=== PATIENT | female | born 1945 | race Caucasian/White ===

== ENCOUNTER 2020-05-28 09:48 | Inpatient (IN) ==
[2020-05-28] MEDS ORDERED: 0.9 % Sodium Chloride 1,000 ML IVC ONE (10:16)
[2020-05-28 10:31] LABS: Hematocrit 33.3 % (35.3-44.9); Hemoglobin 11.1 g/dL (11.5-15.4); Mean Corpuscular HGB Conc 33.3 g/dL (31.6-35.5); Mean Corpuscular Hemoglobin 28.7 pg (28.0-33.3); Mean Platelet Volume 9.3 fL (9.4-12.4); Monocytes # 0.4 K/mcL (0.0-1.3); Platelet Count 507 K/mcL (140-400); Red Blood Count 3.87 M/mcL (3.82-4.97); Red Cell Distribution Width 12.4 % (11.5-14.5); White Blood Count 8.4 K/mcL (4.3-11.1)
[2020-05-28 11:03] LABS: Albumin 3.4 g/dL (3.5-5.7); Albumin/Globulin Ratio 0.9 (1.1-2.2); Bilirubin,Total 0.7 mg/dL (0.3-1.0); Calcium 8.7 mg/dL (8.6-10.3); Globulin 3.6 g/dL (2.4-3.5); Magnesium 2.3 mg/dL (1.6-2.6); Potassium 3.4 mEq/L (3.5-5.1); Troponin I 0.05 ng/mL (< 0.04)
[2020-05-28 11:30] LABS: Lymphocytes # 0.5 K/mcL (0.6-4.6); Neutrophils # 6.8 K/mcL (1.6-8.9)
[2020-05-28] MEDS ORDERED: 0.9 % Sodium Chloride 1,000 ML IVC SCH (11:30)
[2020-05-28 11:37] LABS: Adenovirus Not Detected (Not Detect); Bordetella Pertussis Not Detected (Not Detect); Chlamydophila pneumoniae Not Detected (Not Detect); Coronavirus 229E Not Detected (Not Detect); Coronavirus HKU1 Not Detected (Not Detect); Coronavirus NL63 Not Detected (Not Detect); Coronavirus OC43 Not Detected (Not Detect); Human Metapneumovirus Not Detected (Not Detect); Human Rhinovirus/Enterovirus Not Detected (Not Detect); Influenza A Subtype 2009 H1 Not Detected (Not Detect); Influenza B Not Detected (Not Detect); Mycoplasma pneumoniae Not Detected (Not Detect); Parainfluenza Virus 1 Not Detected (Not Detect); Parainfluenza Virus 2 Not Detected (Not Detect); Parainfluenza Virus 3 Not Detected (Not Detect); Parainfluenza Virus 4 Not Detected (Not Detect); Respiratory Syncytial Virus Not Detected (Not Detect); SARS-CoV-2 Not Detected (Not Detect)
[2020-05-28] MEDS ORDERED: 0.9 % Sodium Chloride 1,000 ML ONE (11:37)
[2020-05-28] MEDS ORDERED: Ondansetron 4 MG/2 ML VIAL IVP ONE (11:41)
[2020-05-28] MEDS ORDERED: Ondansetron 4 MG/2 ML VIAL ONE (11:42)
[2020-05-28] MEDS ORDERED: Potassium Chloride Elixir 20 MEQ/15 ML UDC PO ONE (11:48)
[2020-05-28 12:19] LABS: Amorphous Sediment,Urine Few per hpf (None-Few); Bilirubin,Urine Negative (Negative); Blood,Urine Moderate (Negative); Clarity,Urine Turbid (Clear); Color,Urine Yellow (Yellow); Glucose,Urine (UA) Normal (Normal); Granular Casts,Urine Few per lpf (None Seen); Ketones,Urine Negative (Negative); Leukocyte Esterase,Urine Negative (Negative); Mucus,Urine Few per lpf (None-Few); Nitrite,Urine Negative (Negative); PH,Urine 5.5 pH Units (5.0-8.0); Protein,Urine 50 mg/dL (Neg-Trace); Specific Gravity,Urine 1.011 (1.010-1.025); Urobilinogen,Urine Normal (Normal)
[2020-05-28] MEDS ORDERED: Prochlorperazine 10 MG/2 ML VIAL IVP PRN (12:37)
[2020-05-28] MEDS ORDERED: Naloxone 0.4 MG/ML INJ IVP PRN (12:44)
[2020-05-28] MEDS: 0.9 % Sodium Chloride 1,000 ML IVC SCH (13:20)
[2020-05-28 15:49] LABS: Hematocrit 29.5 % (35.3-44.9); Hemoglobin 9.7 g/dL (11.5-15.4)
[2020-05-28] MEDS: Lactobacillus 1 EACH CAP.SPRINK PO SCH (16:07)
[2020-05-28] MEDS: MetroNIDAZOLE 500 MG/100 ML 500 MG/100 ML BAG IVPB SCH ×2 (16:07→23:49)
[2020-05-28 16:12] LABS: Calcium 7.8 mg/dL (8.6-10.3); Potassium 3.8 mEq/L (3.5-5.1)
[2020-05-28] MEDS: Calcium Gluconate 1gm/50mL 1 GM/50 ML BAG IVPB SCH ×2 (17:37→18:19)
[2020-05-28 19:59] LABS: Hematocrit 28.4 % (35.3-44.9); Hemoglobin 9.5 g/dL (11.5-15.4)
[2020-05-29 00:32] LABS: Hematocrit 28.8 % (35.3-44.9); Hemoglobin 9.9 g/dL (11.5-15.4)
[2020-05-29 03:47] LABS: Hematocrit 28.5 % (35.3-44.9); Hematocrit 28.6 % (35.3-44.9); Hemoglobin 9.4 g/dL (11.5-15.4); Mean Corpuscular HGB Conc 32.9 g/dL (31.6-35.5); Mean Corpuscular Hemoglobin 28.7 pg (28.0-33.3); Mean Corpuscular Volume 87.5 fL (83.0-100.0); Mean Platelet Volume 9.1 fL (9.4-12.4); Platelet Count 495 K/mcL (140-400); Red Blood Count 3.27 M/mcL (3.82-4.97); Red Cell Distribution Width 12.6 % (11.5-14.5); White Blood Count 5.4 K/mcL (4.3-11.1)
[2020-05-29 03:58] LABS: INR 1.7; Prothrombin Time 19.6 Seconds (9.4-12.1)
[2020-05-29 04:08] LABS: Calcium 8.3 mg/dL (8.6-10.3); Chol/HDL Ratio 3.5 (0-4.9); Potassium 3.5 mEq/L (3.5-5.1)
[2020-05-29 07:06] LABS: Hematocrit 29.9 % (35.3-44.9); Hemoglobin 9.9 g/dL (11.5-15.4)
[2020-05-29] MEDS: Sodium Bicarbonate 75 MEQ in 0.45 % Sodium Chloride 1,000 ML IVC SCH (09:53)
[2020-05-29] MEDS: Lactobacillus 1 EACH CAP.SPRINK PO SCH (09:54)
[2020-05-29] MEDS: Aspirin Enteric Coated 81 MG Tablet PO SCH (09:54)
[2020-05-29] MEDS: Famotidine 20 MG/2 ML VIAL IVP SCH (09:54)
[2020-05-29] MEDS: estradioL 1 MG TABLET PO SCH (09:54)
[2020-05-29] MEDS: MetroNIDAZOLE 500 MG/100 ML 500 MG/100 ML BAG IVPB SCH ×2 (09:54→17:00)
[2020-05-29] MEDS: 0.9 % Sodium Chloride 1,000 ML IVC SCH (19:11)
[2020-05-30] MEDS: MetroNIDAZOLE 500 MG/100 ML 500 MG/100 ML BAG IVPB SCH ×4 (00:52→23:12)
[2020-05-30 05:24] LABS: Hematocrit 28.1 % (35.3-44.9); Hemoglobin 9.1 g/dL (11.5-15.4); Mean Corpuscular HGB Conc 32.4 g/dL (31.6-35.5); Mean Corpuscular Hemoglobin 28.6 pg (28.0-33.3); Mean Corpuscular Volume 88.4 fL (83.0-100.0); Mean Platelet Volume 9.2 fL (9.4-12.4); Platelet Count 498 K/mcL (140-400); Red Blood Count 3.18 M/mcL (3.82-4.97); Red Cell Distribution Width 12.7 % (11.5-14.5); White Blood Count 5.7 K/mcL (4.3-11.1)
[2020-05-30 05:46] LABS: Magnesium 1.9 mg/dL (1.6-2.6); Phosphorous 1.9 mg/dL (2.7-4.5)
[2020-05-30 05:47] LABS: % Iron Saturation 5 % (15-50); BUN/Creatinine Ratio 20 (6-26); Blood Urea Nitrogen 17 mg/dL (8-23); Calcium 7.8 mg/dL (8.6-10.3); Carbon Dioxide 19 mEq/L (23-29); Chloride 103 mEq/L (98-107); Glucose 115 mg/dL (70-105); Iron 10 mcg/dL (50-170); Osmolality,Calculated 280 (280-300); Sodium 134 mEq/L (136-145); Transferrin 130 mg/dL (203-362); eGFR For African Americans > 60 (> 60); eGFR For Non-African Americans > 60 (> 60)
[2020-05-30] MEDS: Sodium Bicarbonate 75 MEQ in 0.45 % Sodium Chloride 1,000 ML IVC SCH ×3 (06:01→22:15)
[2020-05-30 06:05] LABS: Ferritin 487 ng/mL (10-120)
[2020-05-30 06:08] LABS: Folate > 22.3 ng/mL (3.0-16.0); Vitamin B12 > 1500 pg/mL (250-1100)
[2020-05-30] MEDS: estradioL 1 MG TABLET PO SCH (07:42)
[2020-05-30] MEDS: Lactobacillus 1 EACH CAP.SPRINK PO SCH (07:42)
[2020-05-30] MEDS: Aspirin Enteric Coated 81 MG Tablet PO SCH (07:42)
[2020-05-30] MEDS: Famotidine 20 MG/2 ML VIAL IVP SCH (07:44)
[2020-05-30] MEDS ORDERED: Potassium Chloride 40 MEQ, Lidocaine 1% 2 ML in 0.9 % Sodium Chloride 500 ML IVPB ONE (08:07)
[2020-05-30] MEDS ORDERED: Isovue-370 500 ML BOTTLE IVP ONE (09:11)
[2020-05-31 02:25] LABS: Hematocrit 26.4 % (35.3-44.9); Hemoglobin 8.9 g/dL (11.5-15.4); Mean Corpuscular HGB Conc 33.7 g/dL (31.6-35.5); Mean Corpuscular Hemoglobin 29.3 pg (28.0-33.3); Mean Corpuscular Volume 86.8 fL (83.0-100.0); Mean Platelet Volume 9.3 fL (9.4-12.4); Platelet Count 444 K/mcL (140-400); Red Blood Count 3.04 M/mcL (3.82-4.97); Red Cell Distribution Width 12.9 % (11.5-14.5); White Blood Count 5.8 K/mcL (4.3-11.1)
[2020-05-31 02:38] LABS: BUN/Creatinine Ratio 15 (6-26); Blood Urea Nitrogen 9 mg/dL (8-23); Calcium 7.5 mg/dL (8.6-10.3); Carbon Dioxide 21 mEq/L (23-29); Chloride 101 mEq/L (98-107); Glucose 112 mg/dL (70-105); Magnesium 1.6 mg/dL (1.6-2.6); Osmolality,Calculated 275 (280-300); Phosphorous 1.7 mg/dL (2.7-4.5); Potassium 2.8 mEq/L (3.5-5.1); Sodium 133 mEq/L (136-145); eGFR For African Americans > 60 (> 60); eGFR For Non-African Americans > 60 (> 60)
[2020-05-31 03:07] LABS: Neutrophils # 4.4 K/mcL (1.6-8.9); Platelet Estimate Increased (Normal); Smudge Cells Present (Not Present); Toxic Granulation Present (Not Present)
[2020-05-31] MEDS: Acetaminophen 325 MG TABLET PO PRN ×2 (04:07→16:28)
[2020-05-31] MEDS ORDERED: Potassium Chloride 20 MEQ, Lidocaine 1% 2 ML in 0.9 % Sodium Chloride 250 ML IVPB ONE (07:27)
[2020-05-31] MEDS: Famotidine 20 MG/2 ML VIAL IVP SCH (09:27)
[2020-05-31] MEDS: MetroNIDAZOLE 500 MG/100 ML 500 MG/100 ML BAG IVPB SCH ×3 (09:27→23:35)
[2020-05-31] MEDS: estradioL 1 MG TABLET PO SCH (09:28)
[2020-05-31] MEDS: Lactobacillus 1 EACH CAP.SPRINK PO SCH (09:28)
[2020-05-31] MEDS: Aspirin Enteric Coated 81 MG Tablet PO SCH (09:28)
[2020-05-31 09:46] LABS: Alanine Aminotransferase 27 Units/L (7-52); Albumin 2.6 g/dL (3.5-5.7); Alkaline Phosphatase 98 Units/L (34-104); Aspartate Amino Transferase 37 Units/L (13-39); Bilirubin,Direct 0.2 mg/dL (0.0-0.2); Bilirubin,Indirect 0.3 mg/dL (0.0-1.0); Bilirubin,Total 0.5 mg/dL (0.3-1.0); Globulin 2.6 g/dL (2.4-3.5); Total Protein 5.2 g/dL (6.4-8.9)
[2020-05-31 14:27] LABS: BUN/Creatinine Ratio 16 (6-26); Blood Urea Nitrogen 10 mg/dL (8-23); Calcium 7.5 mg/dL (8.6-10.3); Carbon Dioxide 23 mEq/L (23-29); Chloride 100 mEq/L (98-107); Glucose 113 mg/dL (70-105); Osmolality,Calculated 274 (280-300); Potassium 3.4 mEq/L (3.5-5.1); Sodium 132 mEq/L (136-145); eGFR For African Americans > 60 (> 60); eGFR For Non-African Americans > 60 (> 60)
[2020-05-31] MEDS: Sodium Bicarbonate 75 MEQ in 0.45 % Sodium Chloride 1,000 ML IVC SCH (16:28)
[2020-06-01] MEDS: Acetaminophen 325 MG TABLET PO PRN (02:48)
[2020-06-01] MEDS ORDERED: Lidocaine -MPF 2% 2 ML VIAL ONE (07:25)
[2020-06-01 07:40] LABS: BUN/Creatinine Ratio 13 (6-26); Blood Urea Nitrogen 7 mg/dL (8-23); Calcium 7.4 mg/dL (8.6-10.3); Carbon Dioxide 26 mEq/L (23-29); Chloride 98 mEq/L (98-107); Eosinophils # 0.1 K/mcL (0.0-0.6); Glucose 107 mg/dL (70-105); Hematocrit 29.7 % (35.3-44.9); Hemoglobin 9.6 g/dL (11.5-15.4); Magnesium 1.5 mg/dL (1.6-2.6); Mean Corpuscular HGB Conc 32.3 g/dL (31.6-35.5); Mean Corpuscular Hemoglobin 28.2 pg (28.0-33.3); Mean Corpuscular Volume 87.1 fL (83.0-100.0); Mean Platelet Volume 9.5 fL (9.4-12.4); Osmolality,Calculated 272 (280-300); Phosphorous 2.1 mg/dL (2.7-4.5); Platelet Count 482 K/mcL (140-400); Potassium 2.9 mEq/L (3.5-5.1); Red Blood Count 3.41 M/mcL (3.82-4.97); Sodium 132 mEq/L (136-145); White Blood Count 6.4 K/mcL (4.3-11.1); eGFR For African Americans > 60 (> 60); eGFR For Non-African Americans > 60 (> 60)
[2020-06-01] MEDS ORDERED: Potassium Chloride 40 MEQ, Lidocaine 1% 2 ML in D5% in Water 500 ML IVPB ONE (08:11)
[2020-06-01 08:51] LABS: Basophils # 0.1 K/mcL (0.0-0.2); Lymphocytes # 0.5 K/mcL (0.6-4.6); Monocytes # 0.5 K/mcL (0.0-1.3); Neutrophils # 5.1 K/mcL (1.6-8.9)
[2020-06-01] MEDS: Sodium Bicarbonate 75 MEQ in 0.45 % Sodium Chloride 1,000 ML IVC SCH (09:11)
[2020-06-01] MEDS: MetroNIDAZOLE 500 MG/100 ML 500 MG/100 ML BAG IVPB SCH ×3 (09:11→23:56)
[2020-06-01] MEDS: Famotidine 20 MG/2 ML VIAL IVP SCH (09:12)
[2020-06-01] MEDS ORDERED: *HR* Metoprolol 5 MG/5 ML VIAL IVP ONE (10:36)
[2020-06-01] MEDS: Aspirin Enteric Coated 81 MG Tablet PO SCH (11:27)
[2020-06-01] MEDS: estradioL 1 MG TABLET PO SCH (11:27)
[2020-06-01] MEDS: Lactobacillus 1 EACH CAP.SPRINK PO SCH (11:27)
[2020-06-01] MEDS: MethylPREDNISolone 40 MG/ML VIAL IVP SCH ×3 (11:29→23:57)
[2020-06-02] MEDS: Sodium Bicarbonate 75 MEQ in 0.45 % Sodium Chloride 1,000 ML IVC SCH ×2 (00:29→15:15)
[2020-06-02 01:55] LABS: Hematocrit 27.7 % (35.3-44.9); Mean Corpuscular HGB Conc 32.5 g/dL (31.6-35.5); Mean Corpuscular Volume 86.3 fL (83.0-100.0); Mean Platelet Volume 9.5 fL (9.4-12.4); Platelet Count 456 K/mcL (140-400); Red Blood Count 3.21 M/mcL (3.82-4.97); Red Cell Distribution Width 12.8 % (11.5-14.5); White Blood Count 4.8 K/mcL (4.3-11.1)
[2020-06-02 02:19] LABS: Alanine Aminotransferase 19 Units/L (7-52); Albumin 2.3 g/dL (3.5-5.7); Albumin/Globulin Ratio 0.9 (1.1-2.2); Alkaline Phosphatase 86 Units/L (34-104); Aspartate Amino Transferase 26 Units/L (13-39); BUN/Creatinine Ratio 16 (6-26); Bilirubin,Total 0.3 mg/dL (0.3-1.0); Blood Urea Nitrogen 7 mg/dL (8-23); C-Reactive Protein 144 mg/L (Less than 10); Calcium 7.1 mg/dL (8.6-10.3); Carbon Dioxide 28 mEq/L (23-29); Chloride 97 mEq/L (98-107); Globulin 2.5 g/dL (2.4-3.5); Glucose 172 mg/dL (70-105); Magnesium 1.5 mg/dL (1.6-2.6); Osmolality,Calculated 278 (280-300); Potassium 3.3 mEq/L (3.5-5.1); Sodium 133 mEq/L (136-145); Total Protein 4.8 g/dL (6.4-8.9); eGFR For African Americans > 60 (> 60); eGFR For Non-African Americans > 60 (> 60)
[2020-06-02] MEDS ORDERED: Potassium Chloride 40 MEQ, Lidocaine 1% 2 ML in D5% in Water 500 ML IVPB ONE (07:30)
[2020-06-02] MEDS: Aspirin Enteric Coated 81 MG Tablet PO SCH (08:36)
[2020-06-02] MEDS: MetroNIDAZOLE 500 MG/100 ML 500 MG/100 ML BAG IVPB SCH ×3 (08:36→23:08)
[2020-06-02] MEDS: MethylPREDNISolone 40 MG/ML VIAL IVP SCH ×3 (08:36→23:07)
[2020-06-02] MEDS: Famotidine 20 MG/2 ML VIAL IVP SCH (08:36)
[2020-06-02] MEDS: Lactobacillus 1 EACH CAP.SPRINK PO SCH (08:36)
[2020-06-02] MEDS: estradioL 1 MG TABLET PO SCH (08:36)
[2020-06-02] MEDS ORDERED: Perflutren Lipid Microsphere 1.3 ML in 0.9 % Sodium Chloride 8.7 ML IVP PRN (12:25)
[2020-06-02] MEDS: Acetaminophen 325 MG TABLET PO PRN (16:23)
[2020-06-03 04:18] LABS: Hemoglobin 9.5 g/dL (11.5-15.4); Mean Corpuscular HGB Conc 32.8 g/dL (31.6-35.5); Mean Corpuscular Hemoglobin 28.4 pg (28.0-33.3); Mean Corpuscular Volume 86.6 fL (83.0-100.0); Mean Platelet Volume 9.3 fL (9.4-12.4); Platelet Count 560 K/mcL (140-400); Red Blood Count 3.35 M/mcL (3.82-4.97); Red Cell Distribution Width 12.7 % (11.5-14.5); White Blood Count 7.2 K/mcL (4.3-11.1)
[2020-06-03 04:36] LABS: Alanine Aminotransferase 20 Units/L (7-52); Albumin 2.4 g/dL (3.5-5.7); Alkaline Phosphatase 85 Units/L (34-104); Aspartate Amino Transferase 27 Units/L (13-39); BUN/Creatinine Ratio 26 (6-26); Bilirubin,Total 0.3 mg/dL (0.3-1.0); Blood Urea Nitrogen 12 mg/dL (8-23); Calcium 7.1 mg/dL (8.6-10.3); Carbon Dioxide 27 mEq/L (23-29); Chloride 100 mEq/L (98-107); Globulin 2.5 g/dL (2.4-3.5); Glucose 154 mg/dL (70-105); Magnesium 1.8 mg/dL (1.6-2.6); Osmolality,Calculated 283 (280-300); Potassium 3.5 mEq/L (3.5-5.1); Sodium 135 mEq/L (136-145); Total Protein 4.9 g/dL (6.4-8.9); eGFR For African Americans > 60 (> 60); eGFR For Non-African Americans > 60 (> 60)
[2020-06-03] MEDS: Sodium Bicarbonate 75 MEQ in 0.45 % Sodium Chloride 1,000 ML IVC SCH ×2 (06:53→18:07)
[2020-06-03] MEDS: Famotidine 20 MG/2 ML VIAL IVP SCH (09:20)
[2020-06-03] MEDS: Aspirin Enteric Coated 81 MG Tablet PO SCH (09:21)
[2020-06-03] MEDS: MetroNIDAZOLE 500 MG/100 ML 500 MG/100 ML BAG IVPB SCH ×2 (09:21→14:55)
[2020-06-03] MEDS: estradioL 1 MG TABLET PO SCH (09:21)
[2020-06-03] MEDS: MethylPREDNISolone 40 MG/ML VIAL IVP SCH ×2 (09:21→16:17)
[2020-06-03] MEDS: Lactobacillus 1 EACH CAP.SPRINK PO SCH (09:21)
[2020-06-03] MEDS: Acetaminophen 325 MG TABLET PO PRN (10:41)
[2020-06-03] MEDS: carvediloL 6.25 MG TABLET PO SCH (16:17)
[2020-06-04] MEDS: MetroNIDAZOLE 500 MG/100 ML 500 MG/100 ML BAG IVPB SCH ×4 (01:18→23:30)
[2020-06-04] MEDS: MethylPREDNISolone 40 MG/ML VIAL IVP SCH ×4 (01:18→23:30)
[2020-06-04 06:27] LABS: Hematocrit 29.4 % (35.3-44.9); Hemoglobin 9.6 g/dL (11.5-15.4); Mean Corpuscular HGB Conc 32.7 g/dL (31.6-35.5); Mean Corpuscular Hemoglobin 28.7 pg (28.0-33.3); Platelet Count 557 K/mcL (140-400); Red Blood Count 3.34 M/mcL (3.82-4.97); Red Cell Distribution Width 12.7 % (11.5-14.5); White Blood Count 11.3 K/mcL (4.3-11.1)
[2020-06-04 06:45] LABS: BUN/Creatinine Ratio 32 (6-26); Blood Urea Nitrogen 14 mg/dL (8-23); Calcium 7.2 mg/dL (8.6-10.3); Carbon Dioxide 29 mEq/L (23-29); Chloride 102 mEq/L (98-107); Glucose 95 mg/dL (70-105); Magnesium 1.4 mg/dL (1.6-2.6); Osmolality,Calculated 284 (280-300); Potassium 3.4 mEq/L (3.5-5.1); Sodium 137 mEq/L (136-145); eGFR For African Americans > 60 (> 60); eGFR For Non-African Americans > 60 (> 60)
[2020-06-04] MEDS ORDERED: Potassium Chloride 20 MEQ, Lidocaine 1% 2 ML in 0.9 % Sodium Chloride 250 ML IVPB ONE (08:04)
[2020-06-04] MEDS: Famotidine 20 MG/2 ML VIAL IVP SCH (08:09)
[2020-06-04] MEDS: Lactobacillus 1 EACH CAP.SPRINK PO SCH (08:09)
[2020-06-04] MEDS: lisinopriL 5 MG TABLET PO SCH (08:09)
[2020-06-04] MEDS: estradioL 1 MG TABLET PO SCH (08:09)
[2020-06-04] MEDS: carvediloL 6.25 MG TABLET PO SCH ×2 (08:09→16:06)
[2020-06-04] MEDS: Aspirin Enteric Coated 81 MG Tablet PO SCH (08:10)
[2020-06-04] MEDS: Sodium Bicarbonate 75 MEQ in 0.45 % Sodium Chloride 1,000 ML IVC SCH (12:25)
[2020-06-04] MEDS: Famotidine 20 MG TABLET PO SCH (20:07)
[2020-06-05 05:32] LABS: Hematocrit 31.9 % (35.3-44.9); Hemoglobin 10.3 g/dL (11.5-15.4); Mean Corpuscular HGB Conc 32.3 g/dL (31.6-35.5); Mean Corpuscular Hemoglobin 28.5 pg (28.0-33.3); Mean Corpuscular Volume 88.1 fL (83.0-100.0); Platelet Count 635 K/mcL (140-400); Red Blood Count 3.62 M/mcL (3.82-4.97)
[2020-06-05 05:43] LABS: BUN/Creatinine Ratio 31 (6-26); Blood Urea Nitrogen 14 mg/dL (8-23); Calcium 7.5 mg/dL (8.6-10.3); Carbon Dioxide 26 mEq/L (23-29); Chloride 103 mEq/L (98-107); Glucose 123 mg/dL (70-105); Magnesium 1.7 mg/dL (1.6-2.6); Osmolality,Calculated 282 (280-300); Potassium 3.8 mEq/L (3.5-5.1); Sodium 135 mEq/L (136-145); eGFR For African Americans > 60 (> 60); eGFR For Non-African Americans > 60 (> 60)
[2020-06-05 06:46] LABS: ANA IgG by ELISA NONE DETECTED (None Detected)
[2020-06-05] MEDS: MethylPREDNISolone 40 MG/ML VIAL IVP SCH (08:14)
[2020-06-05] MEDS: MetroNIDAZOLE 500 MG/100 ML 500 MG/100 ML BAG IVPB SCH (08:14)
[2020-06-05] MEDS: carvediloL 6.25 MG TABLET PO SCH (08:15)
[2020-06-05] MEDS: lisinopriL 5 MG TABLET PO SCH (08:15)
[2020-06-05] MEDS: Famotidine 20 MG TABLET PO SCH (08:15)
[2020-06-05] MEDS: Lactobacillus 1 EACH CAP.SPRINK PO SCH (08:15)
[2020-06-05] MEDS: estradioL 1 MG TABLET PO SCH (08:15)
[2020-06-05] MEDS: Aspirin Enteric Coated 81 MG Tablet PO SCH (08:15)
[2020-06-05] MEDS ORDERED: predniSONE 10 MG TABLET PO SCH (09:00)
[2020-06-05 10:27] VITALS: BP 120/75
[2020-06-05 20:21] LABS: Lambda Qnt Free Light Chains 19.26 mg/L (5.71-26.30)
[2020-06-06 06:53] LABS: Kappa Qnt Free Light Chains 16.25 mg/L (3.30-19.40)
[2020-06-07 05:51] LABS: Alpha 2 Globulin (PEP) 1.03 g/dL (0.48-1.05); Beta Globulin (PEP) 0.53 g/dL (0.48-1.10)
[2020-06-07 10:53] LABS: IFE Reflexed NOT DONE
== END 2020-06-05 12:15 | DRG 392 ==
LOC: 3BNU 09:48 → EMEROOARM 09:48 → SUATTDRO 12:21 → 3BNU 13:58 → SUATTDRO 05-29 12:14
PROVIDERS: ADMIT Internal Medicine; ATTEND Internal Medicine
PROC: ENDOEBX (2020-06-01 09:35)
PROC: ENDOCBX (2020-06-01 09:35)

== ENCOUNTER 2020-11-20 07:57 | Inpatient (IN) ==
[2020-11-20] MEDS ORDERED: 0.9 % Sodium Chloride 1,000 ML IVC ONE (08:56)
[2020-11-20 09:25] LABS: Hematocrit 26.5 % (35.3-44.9); Hemoglobin 8.6 g/dL (11.5-15.4); Mean Corpuscular HGB Conc 32.5 g/dL (31.6-35.5); Mean Corpuscular Hemoglobin 28.5 pg (28.0-33.3); Mean Corpuscular Volume 87.7 fL (83.0-100.0); Mean Platelet Volume 9.6 fL (9.4-12.4); Platelet Count 515 K/mcL (140-400); Red Blood Count 3.02 M/mcL (3.82-4.97); Red Cell Distribution Width 12.6 % (11.5-14.5)
[2020-11-20 09:34] LABS: Alanine Aminotransferase 44 Units/L (7-52); Albumin 3.3 g/dL (3.5-5.7); Albumin/Globulin Ratio 1.1 (1.1-2.2); Alkaline Phosphatase 294 Units/L (34-104); Aspartate Amino Transferase 20 Units/L (13-39); BUN/Creatinine Ratio 13 (6-26); Bilirubin,Direct 0.4 mg/dL (0.0-0.2); Bilirubin,Indirect 0.4 mg/dL (0.0-1.0); Bilirubin,Total 0.8 mg/dL (0.3-1.0); Blood Urea Nitrogen 25 mg/dL (8-23); Calcium 8.8 mg/dL (8.6-10.3); Carbon Dioxide 21 mEq/L (23-29); Chloride 91 mEq/L (98-107); Glucose 109 mg/dL (70-105); Lipase < 3 Units/L (11-82); Osmolality,Calculated 261 (280-300); Potassium 3.5 mEq/L (3.5-5.1); Sodium 123 mEq/L (136-145); Total Protein 6.3 g/dL (6.4-8.9); eGFR For African Americans 31 (> 60); eGFR For Non-African Americans 26 (> 60)
[2020-11-20] MEDS ORDERED: Pantoprazole 40 MG VIAL IVP ONE (10:51)
[2020-11-20] MEDS ORDERED: Ondansetron 4 MG/2 ML VIAL IVP PRN (13:10)
[2020-11-20] MEDS ORDERED: Acetaminophen 325 MG TABLET PO PRN (13:10)
[2020-11-20] MEDS ORDERED: Naloxone 0.4 MG/ML INJ IVP PRN (13:10)
[2020-11-20] MEDS ORDERED: *HR* HYDROcodone/Acet 5/325 mg TABLET PO PRN (13:10)
[2020-11-20 14:46] LABS: Calcium 8.5 mg/dL (8.6-10.3); Potassium 3.6 mEq/L (3.5-5.1)
[2020-11-20] MEDS: MethylPREDNISolone 40 MG/ML VIAL IVP SCH (16:30)
[2020-11-20] MEDS: 0.9 % Sodium Chloride 1,000 ML IVC SCH (16:30)
[2020-11-20 16:46] LABS: Amorphous Sediment,Urine Few per hpf (None-Few); Bacteria,Urine Few per hpf (None-Few); Bilirubin,Urine Negative (Negative); Blood,Urine Small (Negative); Clarity,Urine Turbid (Clear); Color,Urine Yellow (Yellow); Glucose,Urine (UA) Normal (Normal); Ketones,Urine Negative (Negative); Leukocyte Esterase,Urine Moderate (Negative); Mucus,Urine Few per lpf (None-Few); Nitrite,Urine Negative (Negative); Protein,Urine 50 mg/dL (Neg-Trace); Specific Gravity,Urine 1.014 (1.010-1.025); Squamous Epithelial Cell,Urine Few per hpf (None-Few); Urobilinogen,Urine Normal (Normal); WBC,Urine 15-30 per hpf (0-3)
[2020-11-20 16:52] LABS: Sodium, Urine 12.9 mEq/L
[2020-11-21] MEDS: MethylPREDNISolone 40 MG/ML VIAL IVP SCH ×3 (00:21→16:13)
[2020-11-21 00:44] LABS: Hematocrit 22.4 % (35.3-44.9); Hemoglobin 7.5 g/dL (11.5-15.4); Mean Corpuscular HGB Conc 33.5 g/dL (31.6-35.5); Mean Corpuscular Hemoglobin 28.8 pg (28.0-33.3); Mean Corpuscular Volume 86.2 fL (83.0-100.0); Mean Platelet Volume 9.1 fL (9.4-12.4); Platelet Count 420 K/mcL (140-400); Red Cell Distribution Width 12.5 % (11.5-14.5); White Blood Count 7.8 K/mcL (4.3-11.1)
[2020-11-21 01:02] LABS: Calcium 8.1 mg/dL (8.6-10.3); Magnesium 1.5 mg/dL (1.6-2.6); Potassium 3.7 mEq/L (3.5-5.1)
[2020-11-21 01:27] LABS: Lymphocytes # 0.5 K/mcL (0.6-4.6); Monocytes # 0.3 K/mcL (0.0-1.3); Neutrophils # 6.9 K/mcL (1.6-8.9)
[2020-11-21 01:28] LABS: Hypochromasia Present (Not Present)
[2020-11-21] MEDS: 0.9 % Sodium Chloride 1,000 ML IVC SCH ×2 (07:50→20:42)
[2020-11-21 09:22] LABS: Adenovirus F 40/41 PCR Not detected (Not detect); Astrovirus PCR Not detected (Not detect); Campylobacter by PCR Not detected (Not detect); Cryptosporidium by PCR Not detected (Not detect); Cyclospora cayetanensis PCR Not detected (Not detect); E. coli O157 by PCR Not detected (Not detect); Entamoeba histolytica PCR Not detected (Not detect); Enteroaggregative E.coli(EAEC) Not detected (Not detect); Enteropathogenic E.coli(EPEC) Not detected (Not detect); Enterotoxigenic E.coli (ETEC) Not detected (Not detect); Giardia lamblia PCR Not detected (Not detect); Norovirus GI/GII PCR Not detected (Not detect); Plesiomonas shigelloides PCR Not detected (Not detect); Rotavirus A PCR Not detected (Not detect); Salmonella PCR Not detected (Not detect); Sapovirus PCR Not detected (Not detect); Shig/EnteroinvasiveE coli EIEC Not detected (Not detect); Shigalike tox-prod E coli STEC Not detected (Not detect); Vibrio PCR Not detected (Not detect); Vibrio cholerae PCR Not detected (Not detect); Yersinia enterocolitica PCR Not detected (Not detect)
[2020-11-21 09:24] LABS: C.difficile Toxin A/B Gene PCR DETECTED (Not detect)
[2020-11-21 09:29] LABS: Hematocrit 27.6 % (35.3-44.9); Hemoglobin 8.9 g/dL (11.5-15.4)
[2020-11-21] MEDS: carvediloL 6.25 MG TABLET PO SCH (16:13)
[2020-11-22] MEDS: MethylPREDNISolone 40 MG/ML VIAL IVP SCH ×2 (01:43→08:05)
[2020-11-22 02:20] LABS: Hemoglobin 8.1 g/dL (11.5-15.4); Mean Corpuscular HGB Conc 33.8 g/dL (31.6-35.5); Mean Corpuscular Hemoglobin 29.2 pg (28.0-33.3); Mean Corpuscular Volume 86.6 fL (83.0-100.0); Mean Platelet Volume 9.1 fL (9.4-12.4); Platelet Count 493 K/mcL (140-400); Red Blood Count 2.77 M/mcL (3.82-4.97); Red Cell Distribution Width 12.8 % (11.5-14.5); White Blood Count 7.1 K/mcL (4.3-11.1)
[2020-11-22 02:38] LABS: BUN/Creatinine Ratio 20 (6-26); Blood Urea Nitrogen 16 mg/dL (8-23); Carbon Dioxide 18 mEq/L (23-29); Chloride 101 mEq/L (98-107); Glucose 167 mg/dL (70-105); Osmolality,Calculated 273 (280-300); Sodium 129 mEq/L (136-145); eGFR For African Americans > 60 (> 60); eGFR For Non-African Americans > 60 (> 60)
[2020-11-22 07:10] VITALS: BP 170/70; PULSE 93; TEMP 98.1; O2SAT 93
[2020-11-22] MEDS: carvediloL 6.25 MG TABLET PO SCH (08:05)
[2020-11-22 20:15] LABS: QuantiFERON Mitogen minus NIL 1.61 IU/mL
[2020-11-23 11:29] LABS: QuantiFERON NIL 1.34 IU/mL; QuantiFERON-TB Gold In-Tube NEGATIVE (Negative)
== END 2020-11-22 15:17 | disposition home or self-care (01) | DRG 392 ==
LOC: EMEROOARM 07:57 → CDU 07:57 → SUATTDRO 11:04 → CDU 11:30 → 3BNU 17:45
PROVIDERS: ADMIT Internal Medicine; ATTEND Internal Medicine